=== PATIENT | female | born 1955 | race Two or more races ===

== ENCOUNTER 2024-06-12 09:32 | Outpatient (AMB) | payer MEDICARE, MEDICAID, SELFPAY ==
[2024-06-12 10:04] VITALS: BP 122/74; PULSE 69; RESP 18; TEMP 36.6; O2SAT 98; BMI 39.0
--- NOTE | 2024-06-12 10:04 | PD.ORTHCLVIS ---
Vital signs 06/12/24 10:04 Height 1.47 m Height Method Stated Weight 84.453 kg Weight Measurement Method Standing Scale BMI 39.0 BP 122/74 Blood Pressure Source Automatic Cuff Blood Pressure Location Right Upper Arm Position Sitting Respiration 18 Pulse 69 Pulse Source Monitor Temp 97.8 F Temp Source Temporal Artery Scan Pulse Oximetry (%) 98 Oxygen Delivery Method Room Air Med/Allergies Allergies & Medications Allergies No Known Drug Allergies Allergy (Verified 06/12/24 10:04) Medication Reconciliation atorvastatin 20 mg tablet 20 mg PO QDAY 01/13/24 [History Confirmed 06/12/24] metformin 500 mg tablet 500 mg PO BID 01/13/24 [History Confirmed 06/12/24] calcium carbonate 500 mg-vitamin D3 3.125 mcg (125 unit) tablet 1 tab PO QDAY 02/13/24 [History Confirmed 06/12/24] acetaminophen 500 mg tablet (Acetaminophen Extra Strength) 1,000 mg (2 x 500 mg) PO Q6H PRN pain #90 tabs 02/15/24 [Rx Confirmed 06/12/24] aspirin 81 mg tablet,delayed release 81 mg PO BID #60 tabs 02/15/24 [Rx Confirmed 06/12/24] doxycycline hyclate 100 mg tablet 100 mg PO BID #14 tabs 02/15/24 [Rx Confirmed 06/12/24] gabapentin 300 mg capsule 300 mg PO .qhs #30 caps 02/15/24 [Rx Confirmed 06/12/24] meloxicam 7.5 mg tablet 7.5 mg PO QDAY #30 tabs 02/15/24 [Rx Confirmed 06/12/24] oxycodone 5 mg tablet 5 mg PO Q6H PRN pain #28 tabs 02/15/24 [Rx Confirmed 06/12/24] sennosides 8.6 mg-docusate sodium 50 mg tablet (Senna-S) 1 tab-cap PO QDAY #30 tabs 02/15/24 [Rx Confirmed 06/12/24] cefadroxil 500 mg capsule 500 mg PO BID #14 caps 02/29/24 [Rx Confirmed 06/12/24] meloxicam 7.5 mg tablet 7.5 mg PO QDAY #60 tabs 06/12/24 [Rx] oxycodone 5 mg tablet 5 mg PO Q6H PRN pain #28 tabs 06/12/24 [Rx] Subjective Visit Visit for: follow up visit, post op #3 and knee Immunization / Flu Flu Vaccine in the Last 12 Months: No Flu Vaccine Exclusion Criteria: No Exclusion Criteria History of Present Illness Chief complaint: 4 WEEK POST OP Patient is 3 months status post right total knee replacement. She is still using a cane. Her range of motion is good. She is has difficulty weaning cane. She reports that she does hear clicking. She feels that she does not trust her knee. She does have pain in her back that radiates down the right lower extremity Personal History Occupation: RETIRED Pain Pain level (0-10): 3 Pain duration: COMES AND GOES Pain location: anterior Pain quality: dull, aching and tingling Pain timing: increases with activity Associated signs & symptoms: numbness Ambulatory data Ambulatory device: cane Treatments Improvement with previous injections: No Improvement with PT: No Improvement with NSAIDS: n/a Review of Systems Review of Systems: All systems negative unless otherwise noted in HPI. Exam Exam Patient is in no acute distress and is cooperative with the examination today. Patient has a normal mood and affect. Breathing is nonlabored. In no respiratory distress. Bilateral extremities were evaluated and demonstrates sensation intact to light touch. Palpable pedal pulses are present. No significant edema is present. Her incision is clean dry and intact. ROM is 0-100 degrees. Knee feels stable to varus and valgus stress as well as AP translation. The left knee was also examined. The knee was stable to varus and valgus stress as well as AP translation as well. Right knee x-ray demonstrates a total knee replacement good alignment and position. I not see any radiolucent lines Assessment and Plan Problem List (1) History of total left knee replacement: Status: Acute Plan This 68-year-old female who is 4 month status post left total knee replacement. She still using a cane. I She is doing well and is working with physical therapy. Will see her in approximately 3 to 4 months. She is Very happy with her progress Advanced Care Planning Discussion Advance care planning discussed with:: patient and child Office Procedures GNS Level of Care Nursing/Assessment Patient Status: Established Patient Nursing Assessment/Reassesment: Medication Reconciliation, Update PMH in EMR and Vital Signs Coordination of Care: Complex Care and Chronic Disease 1-5, Education Complex Pt/Fam, Consent,records obtained, informed consent, Results/Orders obtained and Staff clarify orders Special Needs: Language special needs Established Patient Charge Established Patient Point Assignment: 95 Established Patient Point Charge: EP Level 3 (80-115) Past Medical History Past Medical History Have you ever been diagnosed with any of the following: Neurological Problems Seizures: No Cardiology Problems Hypercholesterolemia: Yes Congestive Heart Failure: No Edema: Yes (slight to right leg) Varicose Veins: Yes Respiratory Problems Chronic Obstructive Pulmonary Disease (COPD): No Asthma: Yes Smoking: No Smoking Cessation Counseling: No Smoking Exposure: No Tobacco Use: No Clubbing: No Stomache/Intestinal Problems Obesity: Yes Genital/Urinary Problems Renal Disease: No Reproductive Problems Previous Pregnancies: Yes Musculoskeletal Problems Arthritis: Yes Endocrine Problems Diabetes Mellitus Type 1: No Diabetes Mellitus Type 2: Yes Psychologic Problems Depression: Yes (no meds) Other Problems Hospitalization: Yes (surgery) Falls: Yes Blood Transfusions: Yes (During back surgery.) Blood Transfusion Reaction: No Anesthesia Reactions: No Cancer: No Surgical History Total Knee Replacement: Yes
== END 2024-06-12 10:29 | disposition home or self-care (01) ==
LOC: HODSRG 09:32
PROVIDERS: PCP Physician Assistant; Referring Provider Physician Assistant; Supervising Provider Orthopaedic Surgery Adult Reconstructive Orthopaedic Surgery; Visit Provider Orthopaedic Surgery Adult Reconstructive Orthopaedic Surgery
DX: Z96.652 Presence of left artificial knee joint (principal); E78.00 Pure hypercholesterolemia, unspecified; E11.9 Type 2 diabetes mellitus without complications
CPT/HCPCS: 99213; G0463

== ENCOUNTER → 2024-09-25 | Outpatient (CLI) | payer MEDICARE, MEDICAID, SELFPAY ==
--- NOTE | 2024-09-25 | XR_ITS ---
Examination: Bone densitometry Date and time of exam:September 25, 2024 1419 hours INDICATIONS: Menopause age 47 diabetic, family history, father hip fracture Technique: Lumbar spine and hip total bone mineralization values of an calculated. Peak reference and age match control results have been displayed. Findings: Lumbar spine total bone mineralization is1.187 gm/cm2. This is 1.1 standard deviations above peak reference. This is 3.4 standard deviations above age-matched controls. Hip total bone mineralization is 0.819 gm/cm2 This is 1.1 standard deviations below peak reference. This is 0.4 standard deviations above age-matched controls Impression: There is normal mineralization based on lumbar spine measurements. There is osteoporosis based on hip measurements
== END | disposition home or self-care (01) ==
PROVIDERS: Referring Provider Nurse Practitioner Primary Care; Visit Provider Nurse Practitioner Primary Care
DX: Z13.820 Encounter for screening for osteoporosis (principal); M81.0 Age-related osteoporosis without current pathological fracture
CPT/HCPCS: 77080

== ENCOUNTER 2024-10-26 09:54 | Outpatient (AMB) | payer MEDICARE, MEDICAID, SELFPAY ==
[2024-10-26 10:09] VITALS: BP 123/76; PULSE 72; RESP 18; TEMP 36.6; O2SAT 98; BMI 39.0
--- NOTE | 2024-10-26 10:09 | PD.ORTHCLVIS ---
Vital signs 10/26/24 10:09 Height 1.47 m Height Method Stated Weight 84.425 kg Weight Measurement Method Standing Scale BMI 39.0 BP 123/76 Blood Pressure Source Automatic Cuff Blood Pressure Location Right Upper Arm Position Sitting Respiration 18 Pulse 72 Pulse Source Monitor Temp 97.8 F Temp Source Temporal Artery Scan Pulse Oximetry (%) 98 Oxygen Delivery Method Room Air Med/Allergies Allergies & Medications Allergies No Known Drug Allergies Allergy (Verified 10/26/24 10:14) Medication Reconciliation atorvastatin 20 mg tablet 20 mg PO QDAY 01/13/24 [History Confirmed 10/26/24] metformin 500 mg tablet 500 mg PO BID 01/13/24 [History Confirmed 10/26/24] calcium 500 mg (as carbonate)-vitamin D3 3.125 mcg (125 unit) tablet 1 tab PO QDAY 02/13/24 [History Confirmed 10/26/24] acetaminophen 500 mg tablet (Acetaminophen Extra Strength) 1,000 mg (2 x 500 mg) PO Q6H PRN pain #90 tabs 02/15/24 [Rx Confirmed 10/26/24] aspirin 81 mg tablet,delayed release 81 mg PO BID #60 tabs 02/15/24 [Rx Confirmed 10/26/24] doxycycline hyclate 100 mg tablet 100 mg PO BID #14 tabs 02/15/24 [Rx Confirmed 10/26/24] gabapentin 300 mg capsule 300 mg PO .qhs #30 caps 02/15/24 [Rx Confirmed 10/26/24] meloxicam 7.5 mg tablet 7.5 mg PO QDAY #30 tabs 02/15/24 [Rx Confirmed 10/26/24] oxycodone 5 mg tablet 5 mg PO Q6H PRN pain #28 tabs 02/15/24 [Rx Confirmed 10/26/24] sennosides 8.6 mg-docusate sodium 50 mg tablet (Senna-S) 1 tab-cap PO QDAY #30 tabs 02/15/24 [Rx Confirmed 10/26/24] cefadroxil 500 mg capsule 500 mg PO BID #14 caps 02/29/24 [Rx Confirmed 10/26/24] meloxicam 7.5 mg tablet 7.5 mg PO QDAY #60 tabs 06/12/24 [Rx Confirmed 10/26/24] oxycodone 5 mg tablet 5 mg PO Q6H PRN pain #28 tabs 06/12/24 [Rx Confirmed 10/26/24] Exam Exam Patient is in no acute distress and is cooperative with the examination today. Patient has a normal mood and affect. Breathing is nonlabored. In no respiratory distress. Bilateral extremities were evaluated and demonstrates sensation intact to light touch. Palpable pedal pulses are present. No significant edema is present. Her incision is clean dry and intact. ROM is 0-100 degrees. Knee feels stable to varus and valgus stress as well as AP translation. The left knee was also examined. The knee was stable to varus and valgus stress as well as AP translation as well. Right knee x-ray demonstrates a total knee replacement good alignment and position. I not see any radiolucent lines Assessment and Plan Problem List (1) History of total left knee replacement: Status: Acute Plan This 68-year-old female who is 6 month status post left total knee replacement. She still using a cane. I She is doing well. We will see her in 6 months for her 1 year anniversary with new x-rays. She is doing well Advanced Care Planning Discussion Advance care planning discussed with:: patient and child Office Procedures GNS Level of Care Nursing/Assessment Patient Status: Established Patient Nursing Assessment/Reassesment: Medication Reconciliation, Update PMH in EMR and Vital Signs Coordination of Care: Complex Care and Chronic Disease 1-5, Education Complex Pt/Fam, Consent,records obtained, informed consent, Results/Orders obtained and Staff clarify orders Established Patient Charge Established Patient Point Assignment: 95 Established Patient Point Charge: EP Level 3 (80-115) MA Intake Visit Data Collection New Patient or Established: Established Patient (seen at [facility] within 3 years) Reason for Visit:: FOLLOW UP Seen by Clinical Staff ONLY (RN/MA): No Verbal consent obtained for Telemed visit?: No 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 PCP or OBGYN visit in last 3 months: Yes Hx Now: No Do You Feel Safe at Home: Yes Authorities Contacted: N/A Questionairres Past Medical History Past Medical History Have you ever been diagnosed with any of the following: Neurological Problems Seizures: No Cardiology Problems Hypercholesterolemia: Yes Congestive Heart Failure: No Edema: Yes (slight to right leg) Varicose Veins: Yes Respiratory Problems Chronic Obstructive Pulmonary Disease (COPD): No Asthma: Yes Smoking: No Smoking Cessation Counseling: No Smoking Exposure: No Tobacco Use: No Clubbing: No Stomache/Intestinal Problems Obesity: Yes Genital/Urinary Problems Renal Disease: No Reproductive Problems Previous Pregnancies: Yes Musculoskeletal Problems Arthritis: Yes Endocrine Problems Diabetes Mellitus Type 1: No Diabetes Mellitus Type 2: Yes Psychologic Problems Depression: Yes (no meds) Other Problems Hospitalization: Yes (surgery) Falls: Yes Blood Transfusions: Yes (During back surgery.) Blood Transfusion Reaction: No Anesthesia Reactions: No Cancer: No Surgical History Total Knee Replacement: Yes Subjective Visit Visit for: follow up visit and knee Immunization / Flu Flu Vaccine in the Last 12 Months: Yes Flu Vaccine Exclusion Criteria: Already Received History of Present Illness Chief complaint: F/U 4 MONTH FOLLOW UP Patient is doing well s/p R TKA. She is doing well. Pain Pain level (0-10): 2 Pain duration: COMES AND GOES Pain quality: sharp, dull and aching Associated signs & symptoms: none Ambulatory data Ambulatory device: none Treatments Improvement with previous injections: No Improvement with PT: No Improvement with NSAIDS: no Review of Systems Review of Systems: All systems negative unless otherwise noted in HPI.
== END 2024-10-26 10:23 | disposition home or self-care (01) ==
LOC: HODSRG 09:54
PROVIDERS: PCP Nurse Practitioner Primary Care; Referring Provider Nurse Practitioner Primary Care; Supervising Provider Orthopaedic Surgery Adult Reconstructive Orthopaedic Surgery; Visit Provider Orthopaedic Surgery Adult Reconstructive Orthopaedic Surgery
DX: Z47.1 Aftercare following joint replacement surgery (principal); Z96.653 Presence of artificial knee joint, bilateral
CPT/HCPCS: 99213; G0463

== ENCOUNTER → 2024-12-27 | Outpatient (CLI) | payer MEDICARE, MEDICAID, SELFPAY ==
--- NOTE | 2024-12-27 08:45 | XR_ITS ---
Examination: Screening digital mammography, bilateral Computer aided detection 3-D breast Tomosynthesis, bilateral Date and time of exam: December 27, 2024 0901 hours Compared to mammograms dating to December 23, 2014 Indication: Screening Technique: Nonmagnified MLO, CC views of the breasts to been obtained, reconstructed from 3-D Tomosynthesis images. R2 computer aided detection program utilized for evaluation of suspicious masses and/or abnormal calcifications. 3-D Tomosynthesis images obtained. Findings: Scattered areas of fibroglandular density. Benign calcifications. No interval suspicious masses Impression: BI-RADS category II: Benign Findings. Recommend 1 year follow-up mammogram.
== END | disposition home or self-care (01) ==
LOC: CDIM 08:38
PROVIDERS: Referring Provider Nurse Practitioner Primary Care; Visit Provider Nurse Practitioner Primary Care
DX: Z12.31 Encounter for screening mammogram for malignant neoplasm of breast (principal); R92.323 Mammographic fibroglandular density, bilateral breasts; R92.1 Mammographic calcification found on diagnostic imaging of breast
CPT/HCPCS: 77063; 77067

== ENCOUNTER → 2025-01-08 | Outpatient (CLI) | payer MEDICARE, MEDICAID, SELFPAY ==
--- NOTE | 2025-01-08 | XR_ITS ---
Examination: Bilateral AP knees standing single view Right knee PA standing flexion, standing lateral right knee, axial right knee 3 views TECHNIQUE: Bilateral AP knees standing single view Right knee PA standing flexion, standing lateral right knee, axial right knee 3 views total 4 views Date and time: January 08, 2025 1301 hours Comparison 05/21/2024 INDICATIONS: Right knee surgery one year ago. FINDINGS: Moderate osteopenia Total right knee arthroplasty. Satisfactory alignment. No loosening of the prosthetic components Moderate narrowing medial joint space left knee IMPRESSION: Total right knee arthroplasty with satisfactory alignment
== END | disposition home or self-care (01) ==
PROVIDERS: PCP Nurse Practitioner Primary Care; Referring Provider Orthopaedic Surgery Adult Reconstructive Orthopaedic Surgery; Visit Provider Orthopaedic Surgery Adult Reconstructive Orthopaedic Surgery
DX: M17.11 Unilateral primary osteoarthritis, right knee (principal); Z96.651 Presence of right artificial knee joint
CPT/HCPCS: 73564

== ENCOUNTER 2025-04-30 08:58 | Outpatient (AMB) | payer MEDICARE, MEDICAID, SELFPAY ==
[2025-04-30 09:20] VITALS: BP 136/81; PULSE 75; RESP 20; TEMP 36.4; O2SAT 95; BMI 40.8
--- NOTE | 2025-04-30 09:20 | ORTHONT_ITS ---
Vital signs 04/30/25 09:20 Height 1.47 m Height Method Stated Weight 88.224 kg Weight Measurement Method Standing Scale BMI 40.8 BP 136/81 H Blood Pressure Source Automatic Cuff Blood Pressure Location Left Upper Arm Position Sitting Respiration 20 Pulse 75 Pulse Source Monitor Temp 97.6 F Temp Source Temporal Artery Scan Pulse Oximetry (%) 95 Oxygen Delivery Method Room Air Med/Allergies Allergies & Medications Allergies No Known Drug Allergies Allergy (Verified 04/30/25 09:21) Medication Reconciliation atorvastatin 20 mg tablet 20 mg PO QDAY 01/13/24 [History Confirmed 04/30/25] metformin 500 mg tablet 500 mg PO BID 01/13/24 [History Confirmed 04/30/25] calcium 500 mg (as carbonate)-vitamin D3 3.125 mcg (125 unit) tablet 1 tab PO QDAY 02/13/24 [History Confirmed 04/30/25] acetaminophen 500 mg tablet (Acetaminophen Extra Strength) 1,000 mg (2 x 500 mg) PO Q6H PRN pain #90 tabs 02/15/24 [Rx Confirmed 04/30/25] aspirin 81 mg tablet,delayed release 81 mg PO BID #60 tabs 02/15/24 [Rx Confirmed 04/30/25] doxycycline hyclate 100 mg tablet 100 mg PO BID #14 tabs 02/15/24 [Rx Confirmed 04/30/25] gabapentin 300 mg capsule 300 mg PO .qhs #30 caps 02/15/24 [Rx Confirmed 04/30/25] meloxicam 7.5 mg tablet 7.5 mg PO QDAY #30 tabs 02/15/24 [Rx Confirmed 04/30/25] oxycodone 5 mg tablet 5 mg PO Q6H PRN pain #28 tabs 02/15/24 [Rx Confirmed 04/30/25] sennosides 8.6 mg-docusate sodium 50 mg tablet (Senna-S) 1 tab-cap PO QDAY #30 tabs 02/15/24 [Rx Confirmed 04/30/25] cefadroxil 500 mg capsule 500 mg PO BID #14 caps 02/29/24 [Rx Confirmed 04/30/25] oxycodone 5 mg tablet 5 mg PO Q6H PRN pain #28 tabs 06/12/24 [Rx Confirmed 04/30/25] meloxicam 7.5 mg tablet 7.5 mg PO QDAY #60 tabs 04/30/25 [Rx] Exam Exam Patient is in no acute distress and is cooperative with the examination today. Patient has a normal mood and affect. Breathing is nonlabored. In no respiratory distress. Bilateral extremities were evaluated and demonstrates sensation intact to light touch. Palpable pedal pulses are present. No significant edema is present. Her incision is clean dry and intact. ROM is 0-100 degrees. Knee feels stable to varus and valgus stress as well as AP translation. The left knee was also examined. The knee was stable to varus and valgus stress as well as AP translation as well. Right knee x-ray demonstrates a total knee replacement good alignment and position. I not see any radiolucent lines Assessment and Plan Problem List (1) History of total left knee replacement: Status: Acute Plan This 68-year-old female who is 6 month status post left total knee replacement. She is using no assistive device She is doing well. We will get new x-rays today Advanced Care Planning Discussion Advance care planning discussed with:: patient and child Office Procedures GNS Level of Care Nursing/Assessment Patient Status: Established Patient Nursing Assessment/Reassesment: Medication Reconciliation, Update PMH in EMR and Vital Signs Coordination of Care: Complex Care and Chronic Disease 1-5, Education Complex Pt/Fam, Consent,records obtained, informed consent, Results/Orders obtained and Staff clarify orders Established Patient Charge Established Patient Point Assignment: 95 Established Patient Point Charge: EP Level 3 (80-115) MA Intake Visit Data Collection New Patient or Established: Established Patient (seen at 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 PCP or OBGYN visit in last 3 months: Yes Hx Now: No Do You Feel Safe at Home: Yes Authorities Contacted: N/A Questionairres Past Medical History Past Medical History Have you ever been diagnosed with any of the following: Neurological Problems Seizures: No Cardiology Problems Hypercholesterolemia: Yes Congestive Heart Failure: No Edema: Yes (slight to right leg) Varicose Veins: Yes Respiratory Problems Chronic Obstructive Pulmonary Disease (COPD): No Asthma: Yes Smoking: No Smoking Cessation Counseling: No Smoking Exposure: No Tobacco Use: No Clubbing: No Stomache/Intestinal Problems Obesity: Yes Genital/Urinary Problems Renal Disease: No Reproductive Problems Previous Pregnancies: Yes Musculoskeletal Problems Arthritis: Yes Endocrine Problems Diabetes Mellitus Type 1: No Diabetes Mellitus Type 2: Yes Psychologic Problems Depression: Yes (no meds) Other Problems Hospitalization: Yes (surgery) Falls: Yes Blood Transfusions: Yes (During back surgery.) Blood Transfusion Reaction: No Anesthesia Reactions: No Cancer: No Surgical History Total Knee Replacement: Yes Subjective Visit Visit for: follow up visit and knee Immunization / Flu Flu Vaccine in the Last 12 Months: Yes Flu Vaccine Exclusion Criteria: Already Received History of Present Illness Chief complaint: F/U 4 MONTH FOLLOW UP Patient is doing well s/p R TKA. She is doing well. We will see her back in approximately 1 year. She reports the left knee has significant more than the right Pain Pain level (0-10): 2 Pain duration: COMES AND GOES Pain quality: sharp, dull and aching Associated signs & symptoms: none Ambulatory data Ambulatory device: none Treatments Improvement with previous injections: No Improvement with PT: No Improvement with NSAIDS: no Review of Systems Review of Systems: All systems negative unless otherwise noted in HPI.
--- NOTE | 2025-04-30 09:35 | XR_ITS ---
Examination: Bilateral knees 2 views Right lateral knee left lateral knee 2 views Bilateral axial knees single view TECHNIQUE: Bilateral AP knees standing single view, bilateral PA knees standing flexion single view Standing right lateral knee left lateral knee 2 views Bilateral axial knees single view INDICATIONS: Left knee pain 3 months, history right knee replacement one year ago. FINDINGS: Severe osteopenia Total right knee arthroplasty. Satisfactory alignment. No loosening of the prosthetic components. Advanced narrowing medial joint space left knee Moderate osteoarthritis left patellofemoral joint IMPRESSION: Advanced narrowing medial joint space left knee
== END 2025-04-30 09:34 | disposition home or self-care (01) ==
PROVIDERS: Supervising Provider Orthopaedic Surgery Adult Reconstructive Orthopaedic Surgery; Visit Provider Orthopaedic Surgery Adult Reconstructive Orthopaedic Surgery
DX: Z96.652 Presence of left artificial knee joint (principal); E78.00 Pure hypercholesterolemia, unspecified; E11.9 Type 2 diabetes mellitus without complications; E66.9 Obesity, unspecified; Z68.41 Body mass index [BMI] 40.0-44.9, adult
CPT/HCPCS: 73564; 99213; G0463